=== PATIENT | female | born 1990 | race African-American/Black ===

== ENCOUNTER 2024-08-09 10:39 | Emergency (ER) | payer BC ==
[~2024-08-09] VITALS: Ht 175.3 cm; Wt 57.0 kg
[2024-08-09 10:48] VITALS: O2SAT 99
[2024-08-09 12:59] LABS: CHLORIDE 107 mEq/L (98-107); SODIUM 140 mEq/L (136-145)
[2024-08-09 13:00] LABS: CALCIUM 9.6 mg/dL (8.7-10.4); CARBON DIOXIDE 25 mEq/L (21-32)
[2024-08-09 13:03] LABS: PROTHROMBIN TIME 11.2 sec (9.6-11.0)
[2024-08-09 13:05] LABS: CREATININE 0.9 mg/dL (0.6-1.0); GLUCOSE 94 mg/dL (70-105); UREA NITROGEN BLOOD 15 mg/dL (9-23)
[2024-08-09 13:06] LABS: HEMATOCRIT. 39.8 % (36.0-48.0); HEMOGLOBIN. 13.2 g/dL (12.0-16.0); MEAN CORPUSCULAR HGB CONC 33.1 g/dL (31.0-37.0); MEAN CORPUSCULAR VOLUME 96.6 fL (81.0-99.0); MEAN PLATELET VOLUME 9.7 fl (7.4-10.4); PLATELET 245 x1000/uL (130-400); RED BLOOD CELL COUNT 4.12 mill/uL (4.2-5.4); WHITE BLOOD COUNT 10.2 x1000/uL (4.5-11.0)
[2024-08-09 13:07] LABS: ALANINE AMINOTRANSFERASE 13 IU/L (10-49); ALBUMIN 4.5 g/dL (3.2-4.8); ASPARTATE AMINOTRANSFERASE 19 IU/L (<34); BILIRUBIN DIRECT 0.2 mg/dL (<=3.0); HCG SCREEN NEGATIVE
[2024-08-09 13:08] LABS: PROTEIN TOTAL 7.4 g/dL (6.0-8.3)
[2024-08-09 13:10] LABS: TROPONIN I HIGH SENSITIVITY < 4 ng/L (3.0-34)
[2024-08-09 13:14] LABS: CLARITY URINE CLOUDY (CLEAR); COLOR URINE YELLOW (YELLOW); GLUCOSE URINE NEGATIVE (NEGATIVE); KETONES URINE NEGATIVE (NEGATIVE); LEUKOCYTE ESTERASE URINE 3+ (NEGATIVE); NITRITE URINE POSITIVE (NEGATIVE); OCCULT BLOOD URINE 2+ (NEGATIVE); PH URINE 7.5 (4.5-8.0); PROTEIN URINE 2+ (NEGATIVE); SPECIFIC GRAVITY URINE 1.023 (1.005-1.030)
[2024-08-09 13:14] LABS: DIFFERENTIAL COMMENT 1
[2024-08-09 13:29] LABS: BACTERIA URINE 4+; SQUAMOUS EPITHELIAL CELL URINE RARE /lpf (RARE/1+); WBC URINE TNTC /hpf (0-2)
[2024-08-09 14:11] LABS: PLATELET ESTIMATE NORMAL
[2024-08-09] MEDS ORDERED: SULF1TAB48 MT (15:05)
[2024-08-09 15:28] VITALS: BP 147/72; PULSE 83; RESP 18; TEMP 36.78072; O2SAT 100
== END 2024-08-09 15:30 | disposition home or self-care (01) ==
LOC: ER 10:39
DX: N39.0 Urinary tract infection, site not specified (principal)
CPT/HCPCS: 36415; 71045; 74176; 80048; 80076; 81003; 81025; 84484; 84703; 85025; 87077; 87186; 99284